=== PATIENT | female | born 1995 | race Asian ===

== ENCOUNTER 2018-04-26 18:34 | Emergency (ER) | payer OTHER ==
[~2018-04-26] VITALS: Ht 165.1 cm; Wt 81.6 kg
[~2018-04-26 18:34] MED LIST: FERROUS SULF325 M1 PO; METO25TA2 PO; METOPROLOL25 M1 PO; PRENATAL1 TA1 PO; SLOW FE142 MG PO; SPRINTEC 2828 DAY PO
[2018-04-26 20:04] VITALS: BP 142/84; TEMP 98
== END 2018-04-26 20:04 | disposition home or self-care (01) ==
LOC: ED 18:34
DX: L23.9 Allergic contact dermatitis, unspecified cause (principal)
CPT/HCPCS: 96372; 99283; J2930

== ENCOUNTER 2018-05-03 16:13 | Inpatient (IN) | payer OTHER ==
[~2018-05-03] VITALS: Ht 162.6 cm; Wt 104.0 kg
[2018-05-03 17:02] LABS: PLATELET COUNT 519 K/uL (152-353)
[2018-05-03 17:23] LABS: POTASSIUM 3.9 mmol/L (3.6-5.2)
[2018-05-03 18:10] VITALS: BP 131/81; TEMP 98.5; Ht 162.6 cm; Wt 104.0 kg
[2018-05-03 20:00] VITALS: BP 148/76; TEMP 98.5
[2018-05-04] VITALS: BP 122/54; TEMP 98.2
[2018-05-04 04:00] VITALS: BP 132/74; TEMP 97.7
[2018-05-04 08:00] VITALS: BP 132/75; TEMP 98.1
[2018-05-04 12:00] VITALS: BP 134/75; TEMP 98.3
[2018-05-04 16:17] VITALS: BP 122/71; TEMP 98.5
[2018-05-04 20:00] VITALS: BP 127/76; TEMP 98.7
[2018-05-05 00:12] VITALS: BP 116/64; TEMP 98.1
[2018-05-05 04:00] VITALS: BP 113/68; TEMP 98.8
[2018-05-05 08:00] VITALS: BP 121/71; TEMP 98.2
[2018-05-05 12:05] VITALS: BP 119/72; TEMP 98.3
[2018-05-05 16:11] VITALS: BP 136/76; TEMP 98.6
[2018-05-05 20:00] VITALS: BP 122/75; TEMP 98
[2018-05-06] VITALS: BP 109/50; TEMP 98.2
[2018-05-06 04:00] VITALS: BP 112/63; TEMP 97.9
[2018-05-06 08:17] VITALS: BP 126/57; TEMP 97.6
[2018-05-06 12:00] VITALS: BP 118/82; TEMP 98.3
== END 2018-05-06 13:30 | disposition home or self-care (01) | DRG 603 ==
LOC: MED/SURG 16:13
PROVIDERS: ADMIT Family Medicine
DX: L03.211 Cellulitis of face (principal); B02.8 Zoster with other complications; D50.8 Other iron deficiency anemias
CPT/HCPCS: 80053; 82728; 83540; 83550; 85027; J0133; J1956; J2930; J3490

== ENCOUNTER 2020-09-26 13:52 | Emergency (ER) | payer OTHER ==
[~2020-09-26] VITALS: Ht 162.6 cm; Wt 106.6 kg
[2020-09-26 14:03] VITALS: BP 160/61; TEMP 97
[2020-09-26 14:18] LABS: PLATELET COUNT 297 K/uL (152-353)
[2020-09-26 14:38] LABS: PARTIAL THROMBOPLASTIN TIME 26.8 SECONDS (24.5-33.6)
[2020-09-26 14:44] LABS: POTASSIUM 3.4 mmol/L (3.6-5.2)
== END 2020-09-26 15:31 | disposition home or self-care (01) ==
LOC: ED 13:52
PROVIDERS: Hospitalist
DX: O20.0 Threatened abortion (principal); Z3A.01 Less than 8 weeks gestation of pregnancy
CPT/HCPCS: 80053; 84702; 85027; 85610; 85730; 96360; 96365; 99284; J0696

== ENCOUNTER 2021-02-27 11:43 | Outpatient (CLI) | payer OTHER | END 2021-02-27 21:05 | disposition home or self-care (01) | LOC: RAD 11:43 | PROVIDERS: ATTEND Family Medicine | DX: M54.2 Cervicalgia (principal); M54.9 Dorsalgia, unspecified ==

== ENCOUNTER 2023-02-22 16:02 | Emergency (ER) | payer OTHER ==
[~2023-02-22] VITALS: Ht 162.6 cm; Wt 104.3 kg
[2023-02-22 16:06] VITALS: TEMP 99
[2023-02-22 17:23] VITALS: BP 124/86
== END 2023-02-22 17:23 | disposition home or self-care (01) ==
LOC: ED 16:02
DX: M25.561 Pain in right knee (principal)
CPT/HCPCS: 81025; 99282